=== PATIENT | male | born 1940 | race Caucasian/White ===

== ENCOUNTER → 2017-01-11 | Outpatient (CLI) | payer MEDICARE, OTHER ==
[~2017-01-11] MED LIST: CHOL2000 PO; LISI20TA PO
== END | disposition home or self-care (01) ==
LOC: RADPV 14:37
PROVIDERS: ATTEND Legal Medicine
DX: M51.36 Other intervertebral disc degeneration, lumbar region (principal); M51.37 Other intervertebral disc degeneration, lumbosacral region; M47.816 Spondylosis without myelopathy or radiculopathy, lumbar region; I70.0 Atherosclerosis of aorta; M46.06 Spinal enthesopathy, lumbar region
CPT/HCPCS: 72100